=== PATIENT | female | born 1995 | race Caucasian/White ===

== ENCOUNTER 2024-07-14 22:09 | Inpatient (IN) ==
[2024-07-14] MEDS ORDERED: LIDOCAINE 1% LOCAL 20 ML VIAL INFIL PRN (22:16)
[2024-07-14] MEDS ORDERED: LACTATED RINGER'S 1,000 ML IV PRN (22:16)
[2024-07-14] MEDS ORDERED: OXYTOCIN 30 UNITS/NSS 30 UNITS/500 ML BAG IV PRN ×2 (22:16→23:32)
--- NOTE | 2024-07-14 22:20 | History & Physical Report ---
Date of Service July 14, 2024 Assessment & Plan (1) Encounter for supervision of normal in multigravida: Plan: 29 yo at 38 5/7 wga presents in labor VSS Fetus cat 1 Labor - desires epidural gbs neg History of Present Illness Chief Complaint: ctx Primary Care Provider: NO PCP 29 yo at 38 5/7 wga presents with ctx increasing in frequency and intensity. Started irreg around 530 and rapidly worsened over last hour. 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 40 wks G2 current q32d cycles denies hx stis Allergies Allergy/AdvReac Type Severity Reaction Status Date / Time No Known Allergies Allergy Verified 07/11/24 17:31 Home Medications Medication Instructions Recorded Confirmed Type breast pump #1 ea 06/15/24 07/11/24 Rx vits no.124-ferrous fum 1 tab PO DAILY 07/11/24 07/11/24 History 27 mg iron-folic acid 800 mcg tablet ( Vitamin) Patient History Medical History History of chicken pox Surgical History S/P wisdom tooth extraction Family History Father Colorectal cancer Grandmother (Paternal) Breast cancer Denies family history of Ovarian cancer Social History Smoking Status: Never smoker Do You Dip or Chew Tobacco: No; Hx Alcohol Use: No Hx Substance Use: No Preferred Language: Kinyarwanda Communication Ability: Effective Dispatch Officer Required: No Beliefs That Will Affect Care: None marital status: marital status details: Maurilio Quispe (29) [phone] Current Living Situation: Spouse and Family Current Living Situation Comment: and son (2 yo) current occupational status: employed 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 Feels Safe at Home: Yes Assistive Devices: None Physical Exam Genitourinary: Manual OB Exam: + cervical dilation (5-6), + cervical effacement 90% and + station -1 OB Exam Monitor Tracing: + external FHT monitor used, + external uterine monitor used and + category I (135/mod/+accel/- decel) Results & Data Laboratory Results OB Labs: Blood Type O Positive 01/09/24 Antibody Screen NEGATIVE 01/09/24 Hgb 12.7 g/dl (12.0-16.0) 05/04/24 Hct 37.2 % (37.0-47.0) 05/04/24 MCV 84.2 fL (80.0-100.0) 01/09/24 Plt Count 255 K/uL (130-400) 01/09/24 Rubella IgG Antibody Immune (Immune) 01/09/24 Treponema pallidum Ab Negative (Negative) 05/04/24 Hep Bs Antigen Negative (Negative) 01/09/24 Hepatitis C Antibody Negative (Negative) 01/09/24 HIV 1&2 Ab/P24 Ag 4thGn Negative (Negative) 01/09/24 Glucose 1 Hr 50 gm 145 mg/dl (70-130) H 05/04/24 OB Optional Labs: Chlamydia trachomatis RNA Not Detected (NotDetected) 01/09/24 Neisseria gonorrhoeae RNA Not Detected (NotDetected) 01/09/24 Labs Reviewed: Declines genetics--mln GBS neg Diagnostic Findings post plac Coding Level of Care Code None Diagnoses Encounter for supervision of normal in multigravida Z34.80
[2024-07-14 23:01] LABS: Hematocrit (blood only) 38.3 % (37.0-47.0); Hemoglobin 13.3 g/dl (12.0-16.0); Mean Corpuscular Hemoglobin 28.9 pg (25.0-34.0); Mean Corpuscular Hgb Conc 34.7 g/dL (32.0-36.0); Mean Corpuscular Volume 83.1 fL (80.0-100.0); Mean Platelet Volume 10.5 fL (9.4-12.4); Platelet Count 208 K/uL (130-400); RDW Standard Deviation 45.4 fL (36.4-46.3); Red Blood Count 4.61 M/uL (4.20-5.40); White Blood Count 15.86 K/ul (4.8-10.8)
[2024-07-14] MEDS: OXYTOCIN 30 UNITS/500ML NSS IV ONE (23:12)
--- NOTE | 2024-07-14 23:23 | Delivery Summary ---
Vaginal Delivery Summary Date of Service July 14, 2024 Vaginal Delivery Summary [facility] PREOPERATIVE DIAGNOSIS: 1. Single intrauterine at 38 5/7 wga 2. Labor POSTOPERATIVE DIAGNOSIS: 1. Single intrauterine at 38 5/7 wga 2. Labor 3. Delivered PROCEDURE: 1. Normal spontaneous vaginal delivery. SURGEON: Aleida Burris MD ANESTHESIA: None QUANTITATIVE BLOOD LOSS: 50 mL FLUIDS: Continuous LR. URINE OUTPUT: None. COMPLICATIONS: None. CONDITION: Stable. INDICATIONS: 29 yo at 38 5/7 wga presented w/ ctx rapidly increasing in frequency and intensity. She was 5-6cm on arrival. She underwent srom and quickly progressed to complete and desired to push FINDINGS: A viable female infant, weight pending with Apgars of 8 and 9 at 1 and 5 minutes respectively. SPECIMEN: Cord blood OPERATIVE REPORT: The patient progressed to 10 cm, 100% effaced and +2 station, pushed over intact perineum with anesthesia to deliver a viable female , weight and Apgars as above. Head of delivered in AUGIE position. No nuchal cord was present. Body and shoulders were delivered without difficulty. was delivered to maternal abdomen and nursing staff. Delayed cord clamping was performed for 60 seconds. Cord was clamped and cut. Cord blood was obtained. Placenta delivered spontaneously intact with 3-vessel cord. IV oxytocin and fundal massage were given for excellent hemostasis. Vagina, cervix, perineum, and placenta were inspected. Hemostatic lower left labial abrasion did not need repaired. Sponge and needle counts correct x2. No sponges were left behind. Mother and stable in immediate period. [facility] Vaginal Delivery Charge Vaginal Delivery Codes: 07870 global code for the antepartum, delivery, and post- Delivery Type Details: [facility]
[2024-07-14] MEDS ORDERED: bisacodyL 10 MG SUPP PR PRN (23:32)
[2024-07-14] MEDS ORDERED: HYDROCORTISONE ACETATE 25 MG SUPP PR PRN (23:32)
[2024-07-14] MEDS: DIPHTHER/TETAN/PERTUS Vaccine (Tdap, Adol/Adult) 0.5mL IM ONE (23:47)
[2024-07-15] MEDS: IBUPROFEN 600 MG TAB PO PRN (00:17)
[2024-07-15] MEDS: BENZOCAINE 20% SPRY 85 APPLN/85 GM CAN EXT PRN (00:18)
--- NOTE | 2024-07-15 08:01 | Obstetrical Progress Note ---
Date of Service July 15, 2024 Assessment & Plan (1) Encounter for care and examination after delivery: 29 yo PP1 from , doing well -Meeting all pp milestones -Rh+/rubella immune/ -f/u [6] weeks for appt, continue routine care Subjective Ambulation: ambulating normally Voiding: no voiding problems Passing Gas:: Yes Diet Tolerance:: regular diet Lochia:: Small Feeding Type:: breast feeding Pain well managed with medication Review of Systems Denies fevers, chills, n/v, ANDREWS, CP, SOB Physical Exam Constitutional WD/WN, vitals as above no acute distress Respiratory normal respiratory effort, lungs clear to auscultation Cardiovascular RRR, no murmur, no edema Gastrointestinal (Abdomen) Percussion/Palpation: abdomen soft; abdomen nontender fundus firm at umbilicus and NT Musculoskeletal BLE symmetric, nonerythematous, nontender Results & Data Vital Signs (Past 12 Hours) Vital Signs Temp Pulse Pulse Resp BP BP Pulse Ox 07/15/24 05:20 98.1 F 69 16 115/68 97 07/15/24 01:55 99.0 F 72 18 109/64 97 07/15/24 01:21 76 104/58 L 07/15/24 01:06 73 110/62 07/15/24 00:51 111/66 07/15/24 00:36 69 108/59 L 07/15/24 00:21 67 120/70 07/15/24 00:06 77 117/67 07/14/24 23:51 70 117/56 L 07/14/24 23:40 69 111/58 L 07/14/24 23:18 130 H 112/56 L 07/14/24 22:18 97.5 F L 73 22 127/76 O2 Del Method 07/15/24 05:20 Room Air 07/15/24 01:55 Room Air 07/15/24 01:21 07/15/24 01:06 07/15/24 00:51 07/15/24 00:36 07/15/24 00:21 07/15/24 00:06 07/14/24 23:51 07/14/24 23:40 07/14/24 23:18 07/14/24 22:18
[2024-07-15] MEDS: PRENATAL VITAMIN 1 TAB PO SCH (09:16)
[2024-07-15] MEDS: DOCUSATE SODIUM 100 MG CAP PO SCH (09:16)
[2024-07-15] MEDS: ACETAMINOPHEN 325 MG TAB PO PRN (19:47)
[2024-07-15] MEDS: bisacodyL 5 MG TABEC PO SCH (19:47)
[2024-07-16 00:33] VITALS: RESP 16
--- NOTE | 2024-07-16 06:49 | Obstetrical Progress Note ---
Date of Service July 16, 2024 Assessment & Plan (1) Encounter for assessment: Plan: Patient is PPD 2 s/p and doing well - Eating well, voiding well, ambulating well - vitals reviewed and within normal limits - pain well controlled with analgesics - OOB, ambulation, diet progression as tolerated - Blood type: O+, GBS neg, rubella immune - Plan to discharge today - After discharge, 6 week follow up with [facility] Plan Resident Physician Supervision Note: I interviewed and examined the patient. Discussed with Dr. Stahl and agree with findings and plan as documented in the note. Any exceptions or clarifications are listed here: PP2 s/p , dc home Documented By: Aleida Burris MD Admission and Anticipated Discharge Date Admission Date: July 14, 2024 Subjective 29 yo post- day 2 s/p Ambulation: ambulating normally Voiding: no voiding problems Passing Gas:: Yes Diet Tolerance:: regular diet Lochia:: Small Feeding Type:: bottle feeding Current Pain Level: 2/10 Resting comfortably this AM in NAD. Denies ANDREWS, CP, SOB, N/V/D, LE pain/swelling. Physical Exam Physical Exam: General: patient resting comfortably, NAD, non-toxic in appearance, answers questions appropriately. Skin: warm, dry, intact HEENT: NC/AT, anicteric sclera, conjunctiva without injection, moist mucus membranes. Heart: +S1/S2, regular, no m/r/g Lungs: equal air entry bilaterally, no rales/rhonchi/wheezes Abd: +BS, soft, NT/ND, uterine fundus firm at umbilicus Ext: warm, no clubbing/cyanosis or edema Neuro: nonfocal, speech intact, no facial droop, moving all extremities. Results & Data Vital Signs (Past 12 Hours) Vital Signs Temp Pulse Resp BP Pulse Ox O2 Del Method 07/16/24 00:30 36.6 C 62 16 120/76 97 Room Air 07/15/24 19:45 36.4 C L 77 18 107/74 98 Room Air Resident Activity Tracking Resident Involvement: Resident Care Provided Care Provided: OB Delivery
[2024-07-16 07:35] VITALS: BP 96/73; PULSE 64; TEMP 97.7; O2SAT 96
== END 2024-07-16 10:25 | disposition home or self-care (01) | DRG 807 ==
LOC: OPB 22:09 → 4S1 22:14 → 4E1 07-15 02:09